=== PATIENT | female | born 1990 | race African-American/Black ===

== ENCOUNTER 2023-08-02 08:45 | Outpatient (RCR) | payer OTHER, SELFPAY | END 2023-08-02 16:29 | disposition home or self-care (01) | LOC: ANHCPREHAB 08:45 | PROVIDERS: PCP Internal Medicine Cardiovascular Disease; Visit Provider Internal Medicine Cardiovascular Disease | DX: Z95.5 Presence of coronary angioplasty implant and graft (principal) | CPT/HCPCS: 93798 ==

== ENCOUNTER 2025-01-29 11:15 | Outpatient (RCR) | payer OTHER, SELFPAY | END 2025-01-29 23:59 | disposition home or self-care (01) | LOC: ANHCPREHAB 11:15 | PROVIDERS: PCP Internal Medicine Cardiovascular Disease | DX: I25.118 Atherosclerotic heart disease of native coronary artery with other forms of angina pectoris (principal) | CPT/HCPCS: 93798 ==